=== PATIENT | female | born 1990 | race Caucasian/White ===

== ENCOUNTER 2016-08-15 09:38 | Emergency (ER) | payer SELFPAY ==
[~2016-08-15] VITALS: Ht 162.6 cm; Wt 48.0 kg
[2016-08-15 09:40] VITALS: BP 139/87; PULSE 100; RESP 20; TEMP 98.1; O2SAT 95
[2016-08-15] MEDS ORDERED: predniSONE 20 MG TAB PO ONE (10:15)
[2016-08-15] MEDS ORDERED: RESP: ALBUTEROL 2.5 MG/IPRATROPIUM 0.5 MG NEB (SCH) INH ONE (10:15)
[2016-08-15] MEDS ORDERED: BENZ100 PO (10:16)
[2016-08-15] MEDS ORDERED: ALBUAER3 INH (10:16)
[2016-08-15] MEDS ORDERED: MOME17I EACH NARE (10:16)
[2016-08-15] MEDS ORDERED: PRED-503 PO (10:16)
--- NOTE | 2016-08-15 10:22 | PD ---
HPI Chief Complaint: Cold / Flu Symptoms Time Seen by Provider: 10:07 Travel History International Travel<30 days: No Contact w/Intl Traveler<30days: No Traveled to known affect area: No History of Present Illness HPI 26-year-old female presents to the emergency Department with complaint of cough , nasal congestion, wheezing 3 days. Reports fever of 101.0 yesterday and took Tylenol with good relief. Denies history of asthma. Reports chest tightness and shortness of breath. Cough is constant and unrelieved. Cough is worse at night. Denies history of DVT or PE. Denies hemoptysis, recent travel , trauma, surgery. Has not taken any other medications or tried any other treatments to alleviate symptoms. Reports tobacco use. Denies risk of . Denies contraception use. Allergies to codeine. Denies significant past medical history. No other modifying factors or associated signs and symptoms. PFSH Past Medical History Medical History: Denies Significant Hx Diminished Hearing: No Immunizations Current: Yes Menopausal: No : 2 Para: 2 Miscarriage: 0 : 0 Social History Alcohol Use: No Tobacco Use: Yes (3 CIGS A DAY) Substance Use: No Allergies-Medications (Allergen,Severity, Reaction): Coded Allergies: Codeine (Verified Allergy, Severe, Itching, 08/15/16) *MDRO Multi-Drug Resistant Organism (Unverified Adverse Reaction, Unknown , 08/15/16) 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 Reported Meds & Prescriptions Reported Meds & Active Scripts Active Azithromycin 500 Mg Tab 500 Mg PO DAILY Tessalon Perles (Benzonatate) 100 Mg Cap 100 Mg PO TID PRN Nasonex Nasal [place] (Mometasone Furoate) 50 Mcg/Act Naspr 2 [place] EACH NARE DAILY PRN Proair Hfa 8.5 GM Inh (Albuterol Sulfate) 90 Mcg/Act Aer 2 Puff INH Q4-6H PRN 108 mcg/actuation Deltasone (Prednisone) 20 Mg Tab 40 Mg PO DAILY 4 Days start 08/16/2016 Review of Systems Except as stated in HPI: all other systems reviewed are Neg Physical Exam Narrative GENERAL: Well-nourished, well-developed female patient, in no acute distress; afebrile, nontoxic-appearing SKIN: Warm and dry. HEAD: Atraumatic. Normocephalic. EYES: Pupils equal and round. No scleral icterus. No injection or drainage. ENT: Mucosa pink and moist. No erythema or exudates. No uvular edema. No uvular , palatal, or tonsillar deviation. Airway patent. Nares without nasal blood, purulent drainage or septal hematoma. EARS: Bilateral pinnae and external canals appear within normal limits. Bilateral tympanic membranes without erythema, dullness or perforation. NECK: Trachea midline. No lymphadenopathy. CARDIOVASCULAR: Regular rate and rhythm. No murmur appreciated. RESPIRATORY: No accessory muscle use. Lungs with Wheezing throughout to auscultation. Breath sounds equal bilaterally. No retractions or tachypnea. No Audible wheezing noted. Consistent dry cough. GASTROINTESTINAL: Abdomen soft, non-tender, nondistended. Hepatic and splenic margins not palpable. Bowel sounds are active 4 quadrants. MUSCULOSKELETAL: No obvious deformities. No clubbing. No cyanosis. No edema. NEUROLOGICAL: Awake and alert. Oriented 3. No obvious cranial nerve deficits. Motor grossly within normal limits. Normal speech. Moves all extremities. 5/5 strength to all extremities. PSYCHIATRIC: Appropriate mood and affect; insight and judgment normal. Data Data Last Documented VS Vital Signs Date Time Temp Pulse Resp B/P Pulse Ox O2 Delivery O2 Flow Rate FiO2 08/15/16 11:47 98 16 99 08/15/16 09:40 98.1 139/87 Room Air Orders Chest, Single Ap (08/15/16 10:07) Prednisone (Deltasone) (08/15/16 10:15) Albuterol-Ipratropium Neb (Duoneb Neb) (08/15/16 10:15) Albuterol-Ipratropium Neb (Duoneb Neb) (08/15/16 11:00) [facility] Medical Decision Making Medical Screen Exam Complete: Yes Emergency Medical Condition: Yes Medical Record Reviewed: Yes Differential Diagnosis Acute bronchitis, upper respiratory infection, pneumonia, influenza Narrative Course 26-year-old female physical exam consistent with acute bronchitis. Patient is in no acute distress. Oxygen saturation is 95% on room air. No retractions or tachypnea. Patient afebrile on the ER. Reports a fever of 101.0 yesterday. Denies history of DVT/PE. The patient denies history of PE or DVT; denies recent surgery or trauma, hemoptysis, exogenous estrogen and leg edema. The patient has no present criteria for pulmonary embolism; using the PERC rule for pulmonary embolism there is no need for further workup for PE. Chest x-ray ordered. DuoNeb 1 and prednisone administered and ER. 1053: On reexamination lung sounds are with diffuse wheezing. Patient complaining of chest tightness. DuoNeb 2 ordered. 1106: Chest X-ray concludes Mild hyperinflation with minimal peribronchial thickening. 1150: On reexamination patient reports improvement in symptoms. Lung sounds are clear and equal throughout. Pro Air inhaler, Deltasone, Tessalon Perles, nasonex, azithromycin prescribed for home. Patient is medically cleared and stable for discharge. Discussed reasons to return to the emergency department. Instructed patient to follow up with primary care provider. Patient agrees with treatment plan. The patients vital signs are stable and the patient is stable for outpatient follow-up and treatment. Patient discharged home, stable and in no acute distress. Diagnosis Primary Impression: Acute bronchitis Qualified Code: J20.9 - Acute bronchitis, unspecified organism Referrals: Primary Care Physician Patient Instructions: Acute Bronchitis (ED), General Instructions, Safe Use of Cough and Cold Medicines (ED) Departure Forms: Tests/Procedures, Work Release Enter return to work date: Aug 17, 2016 Additional Instructions: Use albuterol inhaler as needed for shortness of breath/wheezing Take oral steroids as prescribed and complete full course Avoid triggers such as second hand smoke, dust, known allergens Ibuprofen/Tylenol as directed for fever/pain Get plenty of sleep/rest Drink plenty of fluids to prevent dehydration; popsicles and Gatorade Offer crackers, dry cereal, fruit, applesauce, etc. to encourage nutrition Use an air humidifier/turn off ceiling fans Follow-up with primary care provider within 1 to 2 days Return to emergency department immediately with worsening of symptoms Med/Other Pt SpecificInfo: Prescription(s) given Scripts Azithromycin 500 Mg [id number] Mg PO DAILY #5 TAB Ref 0 Prov:Coral Dee ENGLISH PROFESSOR 08/15/16 Benzonatate (Tessalon Perles)100 Mg [id number] Mg PO TID PRN (COUGH) #21 CAP Ref 0 Prov:Coral Dee ENGLISH PROFESSOR 08/15/16 Mometasone Nasal [place] (Nasonex Nasal [place])50 Mcg/Act Naspr2 [place] EACH NARE DAILY PRN (NASAL CONGESTION) #1 BOTTLE Ref 0 Prov:Coral DeeP 08/15/16 Albuterol 8.5 GM Inh (Proair Hfa 8.5 GM Inh)90 Mcg/Act Aer2 Puff INH Q4-6H PRN ( SHORTNESS OF BREATH) #1 INHALER Ref 0 108 mcg/actuation Prov:Coral Dee 08/15/16 Prednisone (Deltasone)20 Mg Tab40 Mg PO DAILY 4 Days Ref 0 start 08/16/2016 Prov:Coral Dee 08/15/16 Disposition: 01 DISCHARGE HOME Condition: Stable Coral Dee Aug 15, 2016 10:22
--- NOTE | 2016-08-15 11:01 | RADRPT ---
EXAM DATE/TIME: 08/15/2016 10:51 [place] COMPARISON: No previous studies available for comparison. INDICATIONS : Short of breath, cough, and wheezing. MEDICAL HISTORY : None. SURGICAL HISTORY : None. ENCOUNTER: Initial ACUITY: 3 days PAIN SCORE: 0/10 LOCATION: Bilateral chest FINDINGS: Mild hyperinflation is present with minimal peribronchial thickening. The heart and pulmonary vascula rity are normal. The portion of the bony skeleton visualized is unremarkable. There is no pneumothorax. CONCLUSION: Mild hyperinflation with minimal peribronchial thickening. Esa Napier MD FACR on August 15, 2016 at 10:59 Board Certified Radiologist. This report was verified electronically.
[2016-08-15] MEDS ORDERED: AZIT500T2 PO (11:09)
[2016-08-15] MEDS: RESP: ALBUTEROL 2.5 MG/IPRATROPIUM 0.5 MG NEB (SCH) INH (11:27)
== END 2016-08-15 11:58 | disposition home or self-care (01) ==
LOC: NEPB 09:38
DX: J20.9 Acute bronchitis, unspecified (principal); F17.210 Nicotine dependence, cigarettes, uncomplicated
CPT/HCPCS: 71010; 94640; 94664; 99284; J7512

== ENCOUNTER 2017-02-11 14:48 | Emergency (ER) | payer OTHER ==
[~2017-02-11] VITALS: Ht 162.6 cm; Wt 47.0 kg
[~2017-02-11 14:48] MED LIST: ALBUAER3 INH; AZIT500T2 PO; BENZ100 PO; MOME17I EACH NARE; PRED-503 PO
[2017-02-11 14:51] VITALS: BP 130/85; PULSE 137; RESP 17; TEMP 98.7; O2SAT 97
[2017-02-11] MEDS ORDERED: SODIUM CHLOR 0.9% 1000 ML INJ 1,000 ML IV ONE ×2 (15:15)
--- NOTE | 2017-02-11 15:27 | PD ---
HPI Chief Complaint: Edema Time Seen by Provider: 15:00 Travel History International Travel<30 days: No Contact w/Intl Traveler<30days: No Traveled to known affect area: No History of Present Illness HPI 26-year-old female with history of IV drug abuse here with complaint of left hand/thumb pain. Patient injects Dilaudid 8 mg 2-3 times daily, as well as cocaine. She typically injects in the antecubitals. For the last day she has noticed swelling and pain over the left thumb extending into the left hand. States that this is slightly red. No fevers or chills. En route to severe, worse with movement. Notably tachycardic in the 130s in triage. PFSH Past Medical History Medical History: Denies Significant Hx Diminished Hearing: No Immunizations Current: Yes ?: Unknown Menopausal: No : 2 Para: 2 Miscarriage: 0 : 0 Past Surgical History Surgical History: No Previous Surgery Social History Alcohol Use: No Tobacco Use: Yes (1/2 ppd) Substance Use: Yes (IV DILAUDID, COCAINE DAILY) Allergies-Medications (Allergen,Severity, Reaction): Coded Allergies: Codeine (Verified Allergy, Severe, Itching, 02/11/17) *MDRO Multi-Drug Resistant Organism (Unverified Adverse Reaction, Unknown , 02/11/17) 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 Reported Meds & Prescriptions Reported Meds & Active Scripts Active No Active Prescriptions or Reported Medications Review of Systems Except as stated in HPI: all other systems reviewed are Neg Physical Exam Narrative GENERAL: Cachectic female in no acute distress SKIN: Track white in the bilateral antecubital. HEAD: Normocephalic. EYES: No scleral icterus. No injection or drainage. ENT: Mucous membranes pink and moist. NECK: Supple CARDIOVASCULAR: Tachycardic with heart rate in the 130s, regular rhythm No murmur appreciated. RESPIRATORY: No accessory muscle use. GASTROINTESTINAL: Abdomen soft, non-tender, nondistended. MUSCULOSKELETAL: Mild erythema, mild swelling over the left thumb extending into the MCP, and dorsal hand. Pain with range of motion. There is no significant induration, no fluctuance. There is no streaking erythema. On the right dorsal hand/wrist she does have a urticarial type reaction with raised hive appearance. NEUROLOGICAL: Awake and alert. Motor grossly within normal limits. Normal speech. PSYCHIATRIC: Appropriate mood and affect; insight and judgment normal. Data Data Last Documented VS Vital Signs Date Time Temp Pulse Resp B/P Pulse Ox O2 Delivery O2 Flow Rate FiO2 02/11/17 14:51 98.7 137 17 130/85 97 Orders Complete Blood Count With Diff (02/11/17 15:07) Comprehensive Metabolic Panel (02/11/17 15:07) Lactic Acid Sepsis Protocol (02/11/17 15:07) Blood Culture (02/11/17 15:07) Ecg Monitoring (02/11/17 15:07) Iv Access Insert/Monitor (02/11/17 15:07) Oximetry (02/11/17 15:07) Sodium Chlor 0.9% 1000 Ml Inj (Ns 1000 M (02/11/17 15:15) Sodium Chlor 0.9% 1000 Ml Inj (Ns 1000 M (02/11/17 15:15) MDM Medical Decision Making Medical Screen Exam Complete: Yes Emergency Medical Condition: Yes Medical Record Reviewed: Yes Differential Diagnosis 26-year-old female with history of Dilaudid and cocaine IV drug abuse still using here with complaint of thumb/hand pain on the left times one day. Notably tachycardic in triage. Differential includes cellulitis, abscess, septic joint/arthritis, bacteremia, endocarditis Narrative Course Patient placed on monitor. Her exam is actually fairly benign with only minimal swelling and erythema. However, given her tachycardia I recommended labs including lactate and blood cultures to evaluate for signs of sepsis. Patient stated "my 70-year-old fibryce is in the car, it is down pouring and I need to get some belongings from him. I don't want him to come in, I don't want him to get sick". Patient wanted to leave to go out to the vehicle prior to IV access. We waited for approximately 35 minutes and unfortunately patient did not return and was signed out AGAINST MEDICAL ADVICE. Diagnosis Primary Impression: Left against medical advice Additional Impression: IV drug abuse Scripts No Active Prescriptions or Reported Meds Disposition: 07 AGAINST MEDICAL ADVICE Condition: Stable Araceli Garcia MD Feb 11, 2017 15:27
== END 2017-02-11 16:09 | disposition left against medical advice (07) ==
LOC: NEPD 14:48
DX: F19.10 Other psychoactive substance abuse, uncomplicated (principal)
CPT/HCPCS: 99281

== ENCOUNTER 2017-04-10 13:32 | Emergency (ER) | payer OTHER ==
[2017-04-10 13:36] VITALS: BP 136/90; PULSE 132; RESP 20; TEMP 98.6; O2SAT 99
[2017-04-10] MEDS ORDERED: CLINDAMYCIN INJ 600 MG in SODIUM CHLORIDE 0.9% INJ 100 ML IV ONE (14:15)
[2017-04-10] MEDS ORDERED: SODIUM CHLORIDE 0.9% FLUSH 10 ML FLUSH IVF PRN (14:15)
[2017-04-10] MEDS ORDERED: anxiety med (14:15)
[2017-04-10 14:20] VITALS: BP 129/84; PULSE 129; RESP 18; O2SAT 95
--- NOTE | 2017-04-10 14:26 | PD ---
HPI Chief Complaint: Skin Problem Time Seen by Provider: 14:26 Travel History International Travel<30 days: No Contact w/Intl Traveler<30days: No Traveled to known affect area: No History of Present Illness HPI 26 yr old w/ ADHD, PTSD, anxiety, severe depression, and hx of IV drug use presents with to the ED with L antecubital fossa infection. Accompanied by trell. Reports that swelling and redness started 4-5 days ago on left antecubital fossa after using IV cocaine. Unable to extend left elbow. Also complains that she has been having a lot of anxiety. States that she takes xanax 1 mg on regular basis. She is currently no on any physiatric meds because she has unable to refill them and doesn't have a PCP. States that she is interested in going to [facility]. Endorses mild CP and SOB, but denies fevers, N/V, and abdominal pain. History Past Medical History Menopausal: No : 2 Para: 2 Past Surgical History Surgical History: No Previous Surgery Social History Alcohol Use: No Tobacco Use: Yes (1/2 ppd) Allergies-Medications (Allergen,Severity, Reaction): Coded Allergies: codeine (Unverified Allergy, Severe, Itching, 04/10/17) *MDRO Multi-Drug Resistant Organism (Unverified Adverse Reaction, Unknown , 04/10/17) 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 Reported Meds & Prescriptions Reported Meds & Active Scripts Active Clindamycin (Clindamycin HCl) 300 Mg Cap 300 Mg PO TID Reported [anxiety med] Physical Exam Narrative GENERAL: anxious lady, appears older than her stated age SKIN: 2cm x 4 cm swollen, erythematous, warm indurated area in L antecubital fossa, no drainage seen HEAD: Normocephalic. EYES: No scleral icterus. No injection or drainage. NECK: Supple, trachea midline. No JVD or lymphadenopathy. CARDIOVASCULAR: Regular rate and rhythm without murmurs, gallops, or rubs. RESPIRATORY: Breath sounds equal bilaterally. No accessory muscle use. GASTROINTESTINAL: Abdomen soft, non-tender, nondistended. EXTREMITIES: No cyanosis. NEUROLOGICAL: Awake, alert, and oriented x 3. Non-focal. Data Data Last Documented VS Vital Signs Date Time Temp Pulse Resp B/P (MAP) Pulse Ox O2 Delivery O2 Flow Rate FiO2 04/10/17 16:02 04/10/17 14:20 129 18 95 Room Air 04/10/17 13:36 98.6 Orders Orders Basic Metabolic Panel (Bmp) (04/10/17 14:09) Complete Blood Count With Diff (04/10/17 14:09) Wound Culture And Gram Stain (04/10/17 14:09) Iv Access Insert/Monitor (04/10/17 14:09) Sodium Chloride 0.9% Flush (Ns Flush) (04/10/17 14:15) Clindamycin Inj (Cleocin Inj) (04/10/17 14:15) Lorazepam Inj (Ativan Inj) (04/10/17 14:45) Lidocai-Epi 2%-1:100,000 Inj (Xylocaine- (04/10/17 14:45) Acetamin-Hydrocod 325-5 Mg ([place] 5-325 (04/10/17 15:45) Labs Laboratory Tests Test 04/10/17 14:22 White Blood Count 15.2 TH/MM3 Red Blood Count 4.94 MIL/MM3 Hemoglobin 15.4 GM/DL Hematocrit 44.6 % Mean Corpuscular Volume 90.1 FL Mean Corpuscular Hemoglobin 31.1 PG Mean Corpuscular Hemoglobin Concent 34.5 % Red Cell Distribution Width 13.7 % Platelet Count 345 TH/MM3 Mean Platelet Volume 7.4 FL Neutrophils (%) (Auto) 71.1 % Lymphocytes (%) (Auto) 22.6 % Monocytes (%) (Auto) 4.6 % Eosinophils (%) (Auto) 1.3 % Basophils (%) (Auto) 0.4 % Neutrophils # (Auto) 10.8 TH/MM3 Lymphocytes # (Auto) 3.4 TH/MM3 Monocytes # (Auto) 0.7 TH/MM3 Eosinophils # (Auto) 0.2 TH/MM3 Basophils # (Auto) 0.1 TH/MM3 CBC Comment DIFF FINAL Differential Comment Blood Urea Nitrogen 11 MG/DL Creatinine 0.93 MG/DL Random Glucose 76 MG/DL Calcium Level 8.9 MG/DL Sodium Level 135 MEQ/L Potassium Level 3.5 MEQ/L Chloride Level 100 MEQ/L Carbon Dioxide Level 29.0 MEQ/L Anion Gap 6 MEQ/L Estimat Glomerular Filtration Rate 73 ML/MIN MDM Medical Decision Making Medical Screen Exam Complete: Yes Emergency Medical Condition: No Differential Diagnosis cellulitis vs skin abscess Narrative Course Attempted incision and drainage of infection site in left antecubital fossa by Grace Ybarra. There was no obvious fluid collection. Patient receive a dose of IV clindamycin. Patient found to have leukocytosis on CBC and offered admission, but she declined. She was discharge with oral antibiotics. Scripts Clindamycin (Clindamycin) 300 Mg Cap 300 MG PO TID for Infection, #21 CAP 0 Refills Prov: Araceli Tyson MD 04/10/17 Анна Hadley MD R1 Apr 10, 2017 14:26
[2017-04-10] MEDS ORDERED: LORazepam 2 MG/ML VIAL IV PUSH ONE (14:45)
[2017-04-10] MEDS ORDERED: LIDOCAINE 2%/EPINEPHrine 1:100,000 50ML MDV NERV BLOCK ONE (14:45)
[2017-04-10 14:48] LABS: AUTOMATED NEUTROPHIL # 10.8 TH/MM3 (1.8-7.7); BASOPHIL # 0.1 TH/MM3 (0-0.2); BASOPHIL % 0.4 % (0.0-2.0); EOSINOPHIL # 0.2 TH/MM3 (0-0.4); EOSINOPHIL % 1.3 % (0.0-4.0); HEMATOCRIT 44.6 % (35.0-46.0); HEMO FLAGS DIFF FINAL; LYMPH % 22.6 % (9.0-44.0); LYMPHOCYTE # 3.4 TH/MM3 (1.0-4.8); MEAN CELL VOLUME 90.1 FL (80.0-100.0); MEAN CORPUSCULAR HEMOGLOBIN 31.1 PG (27.0-34.0); MEAN CORPUSCULAR HGB CONC 34.5 % (32.0-36.0); MONO % 4.6 % (0.0-8.0); NEUT % 71.1 % (16.0-70.0); PLATELET COUNT 345 TH/MM3 (150-450); RED BLOOD COUNT 4.94 MIL/MM3 (4.00-5.30); RED CELL DISTRIBUTION WIDTH 13.7 % (11.6-17.2); WHITE BLOOD COUNT 15.2 TH/MM3 (4.0-11.0)
[2017-04-10 15:02] LABS: POTASSIUM 3.5 MEQ/L (3.5-5.1)
[2017-04-10] MEDS ORDERED: CLIN1CAP6 PO (15:29)
--- NOTE | 2017-04-10 15:29 | PD ---
Data Data Last Documented VS Vital Signs Date Time Temp Pulse Resp B/P (MAP) Pulse Ox O2 Delivery O2 Flow Rate FiO2 04/10/17 14:20 129 18 129/84 (99) 95 Room Air 04/10/17 13:36 98.6 Orders Orders Basic Metabolic Panel (Bmp) (04/10/17 14:09) Complete Blood Count With Diff (04/10/17 14:09) Wound Culture And Gram Stain (04/10/17 14:09) Iv Access Insert/Monitor (04/10/17 14:09) Sodium Chloride 0.9% Flush (Ns Flush) (04/10/17 14:15) Clindamycin Inj (Cleocin Inj) (04/10/17 14:15) Lorazepam Inj (Ativan Inj) (04/10/17 14:45) Lidocai-Epi 2%-1:100,000 Inj (Xylocaine- (04/10/17 14:45) Labs Laboratory Tests Test 04/10/17 14:22 White Blood Count 15.2 TH/MM3 Red Blood Count 4.94 MIL/MM3 Hemoglobin 15.4 GM/DL Hematocrit 44.6 % Mean Corpuscular Volume 90.1 FL Mean Corpuscular Hemoglobin 31.1 PG Mean Corpuscular Hemoglobin Concent 34.5 % Red Cell Distribution Width 13.7 % Platelet Count 345 TH/MM3 Mean Platelet Volume 7.4 FL Neutrophils (%) (Auto) 71.1 % Lymphocytes (%) (Auto) 22.6 % Monocytes (%) (Auto) 4.6 % Eosinophils (%) (Auto) 1.3 % Basophils (%) (Auto) 0.4 % Neutrophils # (Auto) 10.8 TH/MM3 Lymphocytes # (Auto) 3.4 TH/MM3 Monocytes # (Auto) 0.7 TH/MM3 Eosinophils # (Auto) 0.2 TH/MM3 Basophils # (Auto) 0.1 TH/MM3 CBC Comment DIFF FINAL Differential Comment Blood Urea Nitrogen 11 MG/DL Creatinine 0.93 MG/DL Random Glucose 76 MG/DL Calcium Level 8.9 MG/DL Sodium Level 135 MEQ/L Potassium Level 3.5 MEQ/L Chloride Level 100 MEQ/L Carbon Dioxide Level 29.0 MEQ/L Anion Gap 6 MEQ/L Estimat Glomerular Filtration Rate 73 ML/MIN [facility] Supervised Visit with LIBRADO: No Narrative Course The history, exam, and medical decision-making in the associated Resident provider note were completed with my assistance. I reviewed and agree with the findings presented. I attest that I had a [id number] encounter with the patient on the same day, and personally performed and documented my assessment and findings in the medical record. *My assessment and Findings: This is a 26-year-old female who presents to the emergency department who is an IV drug user who has an early abscess and cellulitis of the left antecubital fossa. It was evaluated under ultrasound by Hiren Ybarra and an incision and drainage was attempted. It appears that the area is indurated but there is no obvious fluid collection. She is given a dose of IV clindamycin. She does have a leukocytosis. She was offered admission but she declined. She would prefer to do a course of oral antibiotic therapy. I think she has decision-making capacity. She'll be discharged on antibiotics. Gen.: Disheveled Psych: Anxious and intermittently tearful Skin: 3 cm area of induration along the medial aspect of the left antecubital fossa with surrounding erythema and warmth Vascular: 2+ left radial pulse with normal capillary refill in the left forearm Diagnosis Primary Impression: Cellulitis Qualified Codes: L03.114 - Cellulitis of left upper limb Patient Instructions: General Instructions Additional Instruction: If you develop fever, increasing redness, warmth, or spreading of your infection , or severe pain return to the emergency department immediately as you may require antibiotics through your IV. Complete your course of antibiotics as prescribed. Med/Other Pt SpecificInfo: Prescription(s) given Scripts Clindamycin (Clindamycin) 300 Mg Cap 300 MG PO TID for Infection, #21 CAP 0 Refills Prov: Araceli Tyson MD 04/10/17 Disposition: DISCHARGE HOME Condition: Stable Araceli Tyson MD Apr 10, 2017 15:29
[2017-04-10] MEDS ORDERED: ACETAMINOPHEN/HYDROcodone 325 MG/5 MG TAB PO ONE (15:45)
== END 2017-04-10 16:12 | disposition home or self-care (01) ==
LOC: NEPE 13:32
DX: L03.114 Cellulitis of left upper limb (principal); D72.829 Elevated white blood cell count, unspecified; F41.9 Anxiety disorder, unspecified; R07.9 Chest pain, unspecified; R06.02 Shortness of breath; F17.200 Nicotine dependence, unspecified, uncomplicated
CPT/HCPCS: 10060; 80048; 85025; 96365; 96375; 99284; J2060

== ENCOUNTER 2017-04-11 13:44 | Emergency (ER) | payer OTHER ==
[~2017-04-11] VITALS: Ht 162.6 cm; Wt 48.0 kg
[~2017-04-11 13:44] MED LIST changes: -ALBUAER3 INH; -AZIT500T2 PO; -BENZ100 PO; +CLIN1CAP6 PO; -MOME17I EACH NARE; -PRED-503 PO; +anxiety med
[2017-04-11 13:47] VITALS: BP 122/82; PULSE 105; RESP 16; TEMP 98; O2SAT 100
--- NOTE | 2017-04-11 13:53 | PD ---
HPI . left arm cellulitis Chief Complaint: Skin Problem Time Seen by Provider: 13:52 Travel History International Travel<30 days: No Contact w/Intl Traveler<30days: No Traveled to known affect area: No History of Present Illness HPI 26 yr old female IV drug user here for recheck one her left arm abscess. Patient was seen yesterday and I&D was attempted without success. She is here for recheck. She says she thinks the arm is more swollen and that she really needs pain meds because she stopped cocaine and that she needs something for her pain. She says the pain was so severe that she vomited 3 times. She denies any fever or chills. PFSH Past Medical History Anxiety: Yes Diminished Hearing: No Immunizations Current: Yes ?: Not Menopausal: No : 2 Para: 2 Miscarriage: 0 : 0 Social History Alcohol Use: No Tobacco Use: Yes (/ ppd) Substance Use: Yes (IV DILAUDID, COCAINE DAILY) Allergies-Medications (Allergen,Severity, Reaction): Coded Allergies: codeine (Unverified Allergy, Severe, Itching, 04/10/17) *MDRO Multi-Drug Resistant Organism (Unverified Adverse Reaction, Unknown , 04/10/17) 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 Reported Meds & Prescriptions Reported Meds & Active Scripts Active Clindamycin (Clindamycin HCl) 300 Mg Cap 300 Mg PO TID Reported [anxiety med] Review of Systems General / Constitutional: No: Fever Eyes: No: Visual changes HENT: No: Headaches Cardiovascular: No: Chest Pain or Discomfort Respiratory: No: Shortness of Breath Gastrointestinal: No: Abdominal Pain Genitourinary: No: Dysuria Musculoskeletal: Positive: Pain (left arm) Skin: Positive Other (left arm cellulitis), No Rash Neurologic: No: Weakness Psychiatric: No: Depression Endocrine: No: Polydipsia Hematologic/Lymphatic: No: Easy Bruising Physical Exam Narrative GENERAL: AAO x 3, no acute distress, Well-nourished, well-developed patient. comfortable and in no distress SKIN: Warm and dry. No visible rashes or bruising. left antecubital fossa with erythema mild edema and warm to touch. Incision is a visible and draining blood without any evidence of purulence HEAD: Normocephalic and atraumatic. EYES: No scleral icterus. No injection or drainage. ENT: No nasal drainage noted. Mucous membranes pink. Airway patent. NECK: Supple, trachea midline. No JVD. CARDIOVASCULAR: Tachycardic without any rubs, murmurs or gallops. RESPIRATORY: Breath sounds equal bilaterally. No accessory muscle use. No rhonchi or rales. GASTROINTESTINAL: Abdomen soft, non-tender, nondistended. EXTREMITIES: No cyanosis. Limited range of motion of the left arm at the level of the elbow due to reports of pain BACK: No obvious deformity. No CVA tenderness. NEURO: CN II-12 intact, commercial collections driver strength normal b/l, UE and LE 5/5, no focal deficits PSYCH: AAO x 3, normal affect. Data Data Last Documented VS Vital Signs Date Time Temp Pulse Resp B/P (MAP) Pulse Ox O2 Delivery O2 Flow Rate FiO2 04/11/17 13:47 98.0 105 16 122/82 (95) 100 Orders Orders Complete Blood Count With Diff (04/11/17 13:59) Lactic Acid Sepsis Protocol (04/11/17 13:59) Urinalysis - C+S If Indicated (04/11/17 13:59) Blood Culture (04/11/17 13:59) Chest, Single Ap (04/11/17 13:59) Blood Glucose (04/11/17 13:59) Ecg Monitoring (04/11/17 13:59) Iv Access Insert/Monitor (04/11/17 13:59) Oximetry (04/11/17 13:59) Oxygen Administration (04/11/17 13:59) Ed Urine Pregnancytest Poc (04/11/17 13:59) Sodium Chlor 0.9% 1000 Ml Inj (Ns 1000 M (04/11/17 14:15) Labs Laboratory Tests Test 04/11/17 14:20 [facility] Medical Decision Making Medical Screen Exam Complete: Yes Emergency Medical Condition: Yes Medical Record Reviewed: Yes Differential Diagnosis arm cellulitis, IV drug abuse, Narrative Course 26 yr old female here with c/o left arm cellulitis. I have ordered additional labs and sepsis workup as patient is at risk due to her IV drug use. Patient requesting pain meds and did not want what I offered. She decided to leave against AMA and told our nurse she wanted to go elsewhere to get better pain meds. The patient appeared comfortable. She was not in any signs of distress. She also wanted to leave the hospital to smoke. Diagnosis Primary Impression: Left against medical advice Disposition: 07 AGAINST MEDICAL ADVICE Condition: Stable Mary Dean Apr 11, 2017 13:53
[2017-04-11] MEDS ORDERED: SODIUM CHLOR 0.9% 1000 ML INJ 1,000 ML IV ONE (14:15)
--- NOTE | 2017-04-11 14:36 | RADRPT ---
EXAM DATE/TIME: 04/11/2017 14:23 [facility] COMPARISON: CHEST SINGLE AP, August 15, 2016, 10:51. INDICATIONS : Cough. Patient complains of left arm pain and swelling, abcess. Patient had vomiting and diarrhea. MEDICAL HISTORY : None. SURGICAL HISTORY : None. ENCOUNTER: Initial ACUITY: 4 - 6 days PAIN SCORE: 0/10 LOCATION: Bilateral chest FINDINGS: A single view of the chest demonstrates the lungs to be symmetrically aerated without evidence of mas s, infiltrate or effusion. The cardiomediastinal contours are unremarkable. Osseous structures are intact. CONCLUSION: 1. No acute cardiopulmonary findings. Wilton Napier MD on April 11, 2017 at 14:34 Board Certified Radiologist. This report was verified electronically.
[2017-04-11 14:54] LABS: HEMATOCRIT 43.4 % (35.0-46.0); MEAN CELL VOLUME 91.1 FL (80.0-100.0); MEAN CORPUSCULAR HGB CONC 34.1 % (32.0-36.0); PLATELET COUNT 341 TH/MM3 (150-450); RED BLOOD COUNT 4.77 MIL/MM3 (4.00-5.30); RED CELL DISTRIBUTION WIDTH 13.8 % (11.6-17.2); WHITE BLOOD COUNT 11.3 TH/MM3 (4.0-11.0)
[2017-04-11 15:01] LABS: HEMO FLAGS AUTO DIFF
[2017-04-11 15:50] LABS: EOSINOPHILS 2 % (0-4); POLYS (SEG NEUTROPHILS) 71 % (16-70); WBC DIFF SAMPLE 100
[2017-04-11 15:51] LABS: SCAN/DIFF FINAL DIFF MANUAL
== END 2017-04-11 14:58 | disposition left against medical advice (07) ==
LOC: NEPD 13:44
DX: L03.114 Cellulitis of left upper limb (principal); F41.9 Anxiety disorder, unspecified; F17.200 Nicotine dependence, unspecified, uncomplicated; Z88.5 Allergy status to narcotic agent
CPT/HCPCS: 71010; 83605; 85007; 85027; 87040; 99284

== ENCOUNTER 2017-08-01 11:36 | Inpatient (IN) | payer OTHER ==
[~2017-08-01] VITALS: Ht 162.6 cm; Wt 50.0 kg
[~2017-08-01 11:36] MED LIST changes: -CLIN1CAP6 PO; +CLIN300C5 PO
[2017-08-01 11:39] VITALS: BP 133/96; PULSE 148; RESP 20; TEMP 101.4; O2SAT 99
[2017-08-01] MEDS ORDERED: IBUPROFEN 800 MG TAB PO ONE (11:45)
[2017-08-01 13:09] VITALS: BP 119/76; PULSE 148; RESP 13; TEMP 101.2; O2SAT 100
--- NOTE | 2017-08-01 13:19 | PD ---
HPI Chief Complaint: Musculoskeletal Complaint Time Seen by Provider: 12:59 Travel History International Travel<30 days: No Contact w/Intl Traveler<30days: No Traveled to known affect area: No History of Present Illness HPI 27 y/o female presents with mid and low back pain over the past couple of days. She is developed a fever. She states she last used IV drugs a couple months ago. She states she's had abscesses in her extremities but denies prior spinal abscess. She denies any other concurrent complaints at this time. Quality pain is sharp. Severity is severe per patient. Pain is worse with movement. She denies other modifying factors. PFSH Past Medical History Anxiety: Yes Diminished Hearing: No Immunizations Current: Yes Tetanus Vaccination: Unknown ?: Not Menopausal: No : 2 Para: 2 Miscarriage: 0 : 0 Past Surgical History Surgical History: No Previous Surgery Social History Alcohol Use: No (Occasionally) Tobacco Use: Yes (1/2 ppd) Substance Use: No Allergies-Medications (Allergen,Severity, Reaction): Coded Allergies: codeine (Unverified Allergy, Severe, Itching, 04/10/17) *MDRO Multi-Drug Resistant Organism (Unverified Adverse Reaction, Unknown , 04/10/17) 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 Reported Meds & Prescriptions Reported Meds & Active Scripts Active Reported [anxiety med] Review of Systems Except as stated in HPI: all other systems reviewed are Neg Physical Exam Narrative GENERAL: Well-nourished, well-developed patient. SKIN: Warm and dry. HEAD: Normocephalic and atraumatic. EYES: No injection or drainage. ENT: No nasal drainage noted. NECK: Supple, trachea midline. CARDIOVASCULAR: Regular rate and rhythm RESPIRATORY: Breath sounds equal bilaterally. No accessory muscle use. GASTROINTESTINAL: Abdomen soft, non-tender, nondistended. EXTREMITIES: No edema. BACK: Tender to lower thoracic and entire lumbar spine without obvious deformity. No CVA tenderness NEUROLOGICAL: Awake and alert. Motor and sensory grossly within normal limits. Normal speech. Data Data Last Documented VS Vital Signs Date Time Temp Pulse Resp B/P (MAP) Pulse Ox O2 Delivery O2 Flow Rate FiO2 08/01/17 13:48 17 08/01/17 13:09 101.2 148 119/76 (90) 100 Room Air Orders Orders Sepsis Workup Initiated (08/01/17 ) Complete Blood Count With Diff (08/01/17 11:45) Comprehensive Metabolic Panel (08/01/17 11:45) Prothrombin Time / Inr (Pt) (08/01/17 11:45) Act Partial Throm Time (Ptt) (08/01/17 11:45) Lactic Acid Sepsis Protocol (08/01/17 11:45) Urinalysis - C+S If Indicated (08/01/17 11:45) Ibuprofen (Motrin) (08/01/17 11:45) Blood Culture (08/01/17 13:00) Chest, Single Ap (08/01/17 13:00) Ecg Monitoring (08/01/17 13:00) Iv Access Insert/Monitor (08/01/17 13:00) Oximetry (08/01/17 13:00) Mri C Spine W&W/O Contrast (08/01/17 ) Mri T Spine W & W/O Contrast (08/01/17 ) Mri L Spine W&W/O Contrast (08/01/17 ) Ed Urine Pregnancytest Poc (08/01/17 13:00) Sodium Chlor 0.9% 1000 Ml Inj (Ns 1000 M (08/01/17 13:30) Acetaminophen (Tylenol) (08/01/17 13:45) Sodium Chlor 0.9% 1000 Ml Inj (Ns 1000 M (08/01/17 15:45) Gadodiamide Pf Inj (Omniscan Pf Inj) (08/01/17 15:50) Vancomycin Inj (Vancomycin Inj) (08/01/17 17:09) Piperacil-Tazo 4.5 Gm Premix (Zosyn 4.5 (08/01/17 17:09) Sodium Chlor 0.9% 1000 Ml Inj (Ns 1000 M (08/01/17 17:15) Admit Order (Ed Use Only) (08/01/17 17:13) Labs Laboratory Tests Test 08/01/17 12:30 08/01/17 13:10 08/01/17 14:26 08/01/17 16:43 Blood Urea Nitrogen 13 MG/DL Creatinine 0.97 MG/DL Random Glucose 110 MG/DL Total Protein 8.7 GM/DL Albumin 4.0 GM/DL Calcium Level 9.7 MG/DL Alkaline Phosphatase 183 U/L Aspartate Amino Transf (AST/SGOT) 118 U/L Alanine Aminotransferase (ALT/SGPT) 82 U/L Total Bilirubin 1.2 MG/DL Sodium Level 137 MEQ/L Potassium Level 5.2 MEQ/L Chloride Level 103 MEQ/L Carbon Dioxide Level 26.0 MEQ/L Anion Gap 8 MEQ/L Estimat Glomerular Filtration Rate 69 ML/MIN Lactic Acid Level 3.1 mmol/L 1.5 mmol/L Urine Color YELLOW Urine Turbidity CLEAR Urine pH 5.5 Urine Specific [place] 1.010 Urine Protein NEG mg/dL Urine Glucose (UA) NEG mg/dL Urine Ketones NEG mg/dL Urine Occult Blood NEG Urine Nitrite NEG Urine Bilirubin NEG Urine Urobilinogen LESS THAN 2.0 MG/DL Urine Leukocyte Esterase TRACE Urine RBC 1 /hpf Urine WBC 2 /hpf Urine Mucus FEW /lpf Microscopic Urinalysis Comment CATH-CULT NOT IND White Blood Count 11.0 TH/MM3 Red Blood Count 4.27 MIL/MM3 Hemoglobin 13.5 GM/DL Hematocrit 38.9 % Mean Corpuscular Volume 91.1 FL Mean Corpuscular Hemoglobin 31.7 PG Mean Corpuscular Hemoglobin Concent 34.8 % Red Cell Distribution Width 13.8 % Platelet Count 189 TH/MM3 Mean Platelet Volume 7.4 FL Neutrophils (%) (Auto) 95.3 % Lymphocytes (%) (Auto) 3.9 % Monocytes (%) (Auto) 0.4 % Eosinophils (%) (Auto) 0.3 % Basophils (%) (Auto) 0.1 % Neutrophils # (Auto) 10.5 TH/MM3 Lymphocytes # (Auto) 0.4 TH/MM3 Monocytes # (Auto) 0.0 TH/MM3 Eosinophils # (Auto) 0.0 TH/MM3 Basophils # (Auto) 0.0 TH/MM3 CBC Comment DIFF FINAL Differential Comment Prothrombin Time 11.7 SEC Prothromb Time International Ratio 1.2 RATIO Activated Partial Thromboplast Time 26.8 SEC [facility] Medical Decision Making Medical Screen Exam Complete: Yes Emergency Medical Condition: Yes Medical Record Reviewed: Yes (past history confirmed) Interpretation(s) CBC & BMP Diagram 08/01/17 12:30 Total Protein 8.7 H, Albumin 4.0, Calcium Level 9.7, Alkaline Phosphatase 183 H , Aspartate Amino Transf (AST/SGOT) 118 H, Alanine Aminotransferase (ALT/SGPT) 82 H, Total Bilirubin 1.2 H 08/01/17 14:26 Last 24 hours Impressions Chest X-Ray 08/01/17 1300 Signed Impressions: Service Date/Time: Tuesday, August 01, 2017 13:22 - CONCLUSION: No acute disease. There is no evidence of pneumonia. Delfino Hawk MD Lumbar Spine MRI 08/01/17 0000 Signed Impressions: Service Date/Time: Tuesday, August 01, 2017 15:24 - CONCLUSION: Disc degeneration and tiny protrusion at L5-S1. No other acute findings. No evidence of abscess as questioned. Michael Solorio MD Differential Diagnosis Discitis, spinal abscess, UTI, pneumonia, URI Narrative Course Will add on MRI entire spine and discuss with neurosurgery given history of IV drug abuse MRI shows no signs of infection. Patient will now be given antibiotics and she' ll be admitted to the hospital for sepsis workup including possible endocarditis given IV drug history use, patient updated and agrees to plan Sepsis Criteria SIRS Criteria (2 or more): Temp > 100.9 or < 96.8, Heart rate over 90 Sepsis Criteria (SIRS+source): Infect source susp/known Severe Sepsis (+one): Lactate >2 Criteria Outcome: Meets severe sepsis criteria Physician Communication Physician Communication dr murguia states to wait on antibiotics when case discussed at 1324 dr baron agrees to admit Diagnosis Primary Impression: Sepsis Qualified Codes: A41.9 - Sepsis, unspecified organism Additional Impression: IV drug abuse Admitting Information Admitting Physician Requests: Admit Suzi Ibarra MD Aug 01, 2017 13:19
[2017-08-01 13:20] LABS: ALKALINE PHOSPHATASE 183 U/L (45-117); LACTIC ACID SEPSIS PROTOCOL 3.1 mmol/L (0.4-2.0); TOTAL BILIRUBIN ADULT 1.2 MG/DL (0.2-1.0); TOTAL PROTEIN 8.7 GM/DL (6.4-8.2)
[2017-08-01 13:21] LABS: ALT (GPT) 82 U/L (10-53); AST (GOT) 118 U/L (15-37); BLOOD UREA NITROGEN 13 MG/DL (7-18); CALCIUM 9.7 MG/DL (8.5-10.1); CHLORIDE 103 MEQ/L (98-107); CREATININE 0.97 MG/DL (0.50-1.00); GLOMERULAR FILTRATION RATE 69 ML/MIN (>89); GLUCOSE,RANDOM 110 MG/DL (74-106); SODIUM (NA) 137 MEQ/L (136-145)
[2017-08-01] MEDS ORDERED: SODIUM CHLOR 0.9% 1000 ML INJ 1,000 ML IV ONE ×3 (13:30→17:15)
--- NOTE | 2017-08-01 13:43 | RADRPT ---
EXAM DATE/TIME: 08/01/2017 13:22 [facility] COMPARISON: CHEST SINGLE AP, April 11, 2017, 14:23. INDICATIONS : Fever, short of breath, cough, chest pain MEDICAL HISTORY : None. SURGICAL HISTORY : None. ENCOUNTER: Initial ACUITY: 1 day PAIN SCORE: 5/10 LOCATION: Bilateral chest FINDINGS: A single view of the chest demonstrates the lungs to be symmetrically aerated without evidence of mas s, infiltrate or effusion. The cardiomediastinal contours are unremarkable. Osseous structures are intact. There are multiple overlying electrocardiogram leads. CONCLUSION: No acute disease. There is no evidence of pneumonia. Delfino Hawk MD on August 01, 2017 at 13:39 Board Certified Radiologist. This report was verified electronically.
[2017-08-01] MEDS ORDERED: ACETAMINOPHEN 325 MG TAB PO ONE (13:45)
[2017-08-01 14:08] LABS: BILIRUBIN, URINE NEG (NEG); BLOOD, URINE NEG (NEG); GLUCOSE,URINE NEG (NEG); KETONE, URINE NEG (NEG); MUCUS URINE FEW /lpf (OCC); NITRITE,URINE NEG (NEG); PH, URINE 5.5 (5.0-8.5); URINE COLOR YELLOW (YELLW/STRAW); URINE LEUKOCYTE ESTERASE TRACE (NEG)
[2017-08-01 15:22] LABS: AUTOMATED NEUTROPHIL # 10.5 TH/MM3 (1.8-7.7); BASOPHIL % 0.1 % (0.0-2.0); EOSINOPHIL % 0.3 % (0.0-4.0); HEMATOCRIT 38.9 % (35.0-46.0); HEMOGLOBIN 13.5 GM/DL (11.6-15.3); LYMPH % 3.9 % (9.0-44.0); LYMPHOCYTE # 0.4 TH/MM3 (1.0-4.8); MEAN CELL VOLUME 91.1 FL (80.0-100.0); MEAN CORPUSCULAR HEMOGLOBIN 31.7 PG (27.0-34.0); MEAN CORPUSCULAR HGB CONC 34.8 % (32.0-36.0); MEAN PLATELET VOLUME 7.4 FL (7.0-11.0); MONO % 0.4 % (0.0-8.0); NEUT % 95.3 % (16.0-70.0); PLATELET COUNT 189 TH/MM3 (150-450); RED BLOOD COUNT 4.27 MIL/MM3 (4.00-5.30); RED CELL DISTRIBUTION WIDTH 13.8 % (11.6-17.2)
[2017-08-01 15:34] LABS: INTERNATIONAL NORMALIZED RATIO 1.2 RATIO; PROTHROMBIN TIME - PATIENT 11.7 SEC (9.8-11.6)
[2017-08-01] MEDS ORDERED: GADODIAMIDE PF 287 MG/ML 10 ML VIAL (for RAD MRI) IV PUSH ONE (15:50)
--- NOTE | 2017-08-01 16:29 | RADRPT ---
EXAM DATE/TIME: 08/01/2017 15:24 [facility] COMPARISON: No previous studies available for comparison. INDICATIONS : Abscess. CONTRAST: 10 cc Omniscan (gadodiamide) IV MEDICAL HISTORY : Hepatitis C. SURGICAL HISTORY : None. ENCOUNTER: Initial ACUITY: 2 day PAIN SCORE: 4/10 LOCATION: spine TECHNIQUE: Multiplanar multisequence MRI of the lumbar spine was performed with and without contrast. FINDINGS: The most caudal appearing lumbar vertebra is numbered as L5. VERTEBRAE: Homogeneous signal. Normal alignment. CONUS: Normal level and configuration. POST CONTRAST: No abnormal areas of contrast enhancement are seen. T12-L1: The thecal sac has a normal diameter. No evidence of disc bulge or protrusion. The neural foramina are patent bilaterally. L1-L2: The thecal sac has a normal diameter. No evidence of disc bulge or protrusion. The neural foramina are patent bilaterally. L2-L3: The thecal sac has a normal diameter. No evidence of disc bulge or protrusion. The neural foramina are patent bilaterally. L3-L4: The thecal sac has a normal diameter. No evidence of disc bulge or protrusion. The neural foramina are patent bilaterally. L4-L5: The thecal sac has a normal diameter. No evidence of disc bulge or protrusion. The neural foramina are patent bilaterally. L5-S1: Moderate disc dehydration. Small broad central to minimally right paracentral dorsal disc protrusion minimally indenting thecal sac. Canal and foramina are satisfactory. CONCLUSION: Disc degeneration and tiny protrusion at L5-S1. No other acute findings. No evidence of abscess as qu estioned. Michael Solorio MD on August 01, 2017 at 16:25 Board Certified Radiologist. This report was verified electronically.
--- NOTE | 2017-08-01 16:41 | RADRPT ---
EXAM DATE/TIME: 08/01/2017 15:24 [facility] COMPARISON: No previous studies available for comparison. INDICATIONS : Back pain. Evaluate for possible abscess.. CONTRAST: 10 cc Omniscan (gadodiamide) IV MEDICAL HISTORY : Hepatitis C. SURGICAL HISTORY : None. ENCOUNTER: Initial ACUITY: 2 day PAIN SCORE: 4/10 LOCATION: spine TECHNIQUE: Multiplanar multisequence MRI of the thoracic spine was performed. FINDINGS: VERTEBRA: Normal vertebral body height. Homogeneous marrow signal. ALIGNMENT: Normal. CORD: Normal position and configuration. POST CONTRAST: No abnormal areas of contrast enhancement seen. T1-T2: Normal. T2-T3: The thecal sac has a normal diameter. No evidence of disc bulge or protrusion. T3-T4: The thecal sac has a normal diameter. No evidence of disc bulge or protrusion. T4-T5: The thecal sac has a normal diameter. No evidence of disc bulge or protrusion. T5-T6: The thecal sac has a normal diameter. No evidence of disc bulge or protrusion. T6-T7: The thecal sac has a normal diameter. No evidence of disc bulge or protrusion. T7-T8: The thecal sac has a normal diameter. No evidence of disc bulge or protrusion. T8-T9: The thecal sac has a normal diameter. No evidence of disc bulge or protrusion. T9-T10: The thecal sac has a normal diameter. No evidence of disc bulge or protrusion. T10-T11: The thecal sac has a normal diameter. No evidence of disc bulge or protrusion. T11-T12: The thecal sac has a normal diameter. No evidence of disc bulge or protrusion. T12-L1: The thecal sac has a normal diameter. No evidence of disc bulge or protrusion. CONCLUSION: Negative exam with no evidence of abscess. Delfino Hawk MD on August 01, 2017 at 16:36 Board Certified Radiologist. This report was verified electronically.
--- NOTE | 2017-08-01 16:56 | RADRPT ---
EXAM DATE/TIME: 08/01/2017 15:24 [facility] COMPARISON: No previous studies available for comparison. INDICATIONS : Neck and back pain. Evaluate for abscess. CONTRAST: 10 cc Omniscan (gadodiamide) IV MEDICAL HISTORY : Hepatitis C. SURGICAL HISTORY : None. ENCOUNTER: Initial ACUITY: 2 day PAIN SCORE: 4/10 LOCATION: Spine. TECHNIQUE: Multiplanar, multisequence MRI examination of the cervical spine was performed. FINDINGS: VERTEBRAE: Normal vertebral body height. Homogeneous marrow signal. ALIGNMENT: No evidence of subluxation. CORD: Normal configuration and signal. POST FOSSA: The cerebellar tonsils are normal in position. POST-CONTRAST: No abnormal areas of enhancement are seen. C2-C3: The thecal sac has a normal configuration. There is no evidence of disc herniation or spinal canal stenosis. The neural foramina are patent bilaterally. C3-C4: The thecal sac has a normal configuration. There is no evidence of disc herniation or spinal canal s tenosis. The neural foramina are patent bilaterally. C4-C5: The thecal sac has a normal configuration. There is no evidence of disc herniation or spinal canal s tenosis. The neural foramina are patent bilaterally. C5-C6: The thecal sac has a normal configuration. There is no evidence of disc herniation or spinal canal s tenosis. The neural foramina are patent bilaterally. C6-C7: The thecal sac has a normal configuration. There is no evidence of disc herniation or spinal canal s tenosis. The neural foramina are patent bilaterally. C7-T1: The thecal sac has a normal configuration. There is no evidence of disc herniation or spinal canal s tenosis. The neural foramina are patent bilaterally. CONCLUSION: Negative exam with no evidence of abscess. Delfino Hawk MD on August 01, 2017 at 16:49 Board Certified Radiologist. This report was verified electronically.
[2017-08-01] MEDS ORDERED: VANCOMYCIN INJ 1,000 MG in SODIUM CHLOR 0.9% 250 ML INJ 250 ML IV STA (17:09)
[2017-08-01] MEDS ORDERED: PIPERACIL-TAZO 4.5 GM PREMIX 100 ML IV STA (17:09)
[2017-08-01] MEDS ORDERED: ACETAMINOPHEN 325 MG TAB PO PRN (17:30)
[2017-08-01] MEDS ORDERED: MAGNESIUM HYDROXIDE SUSP 30 ML CUP PO PRN (17:30)
[2017-08-01] MEDS ORDERED: LACTULOSE SYRUP 20 GM/30 ML CUP PO PRN (17:30)
[2017-08-01] MEDS ORDERED: SODIUM CHLORIDE 0.9% FLUSH 10 ML FLUSH IV FLUSH PRN (17:30)
[2017-08-01] MEDS ORDERED: Vancomycin Consult Pharmacy 1 EA OTHER SCH (17:30)
[2017-08-01] MEDS ORDERED: NALOXONE HCL 0.4 MG/ML AMP IV PUSH PRN (17:30)
[2017-08-01] MEDS ORDERED: SENNOSIDES 8.6 MG TAB PO PRN (17:30)
[2017-08-01] MEDS ORDERED: BISACODYL 10 MG SUPP RECTAL PRN (17:30)
[2017-08-01] MEDS ORDERED: ENOXAPARIN SODIUM 40 MG/0.4 ML SYRINGE SQ SCH ×2 (17:30→21:30)
[2017-08-01] MEDS ORDERED: ONDANSETRON HCL 4 MG/2 ML VIAL IVP PRN (17:30)
[2017-08-01] MEDS: PIPERACIL-TAZO 3.375 GM PREMIX 50 ML IV SCH ×2 (17:52→18:22)
[2017-08-01 17:53] VITALS: BP 102/62; PULSE 98; RESP 17; TEMP 98.9; O2SAT 100
[2017-08-01] MEDS: traMADol HCL 50 MG TAB PO PRN (18:15)
[2017-08-01 21:14] VITALS: BP 95/62; PULSE 67; RESP 20; TEMP 98.5; O2SAT 97
[2017-08-01] MEDS: SODIUM CHLORIDE 0.9% FLUSH 10 ML FLUSH IV FLUSH SCH (21:39)
--- NOTE | 2017-08-01 22:00 | HHI.HP ---
[facility] No Primary Care Physician Admission Diagnosis sepsis, IVDA Diagnoses: Chief Complaint: Fever, mid and low back pain. Travel History International Travel<30 Days: No Contact w/Intl Traveler <30 Da: No Traveled to Known Affected Are: No Sepsis Criteria SIRS Criteria (2 or more): Temp > 100.9 or < 96.8, Heart rate over 90 Sepsis Criteria (SIRS+source): Infect source susp/known Severe Sepsis (+one): Lactate >2 Criteria Outcome: Meets SIRS criteria, Meets sepsis criteria, Meets severe sepsis criteria History of Present Illness Ms. Conti is a pleasant 27 year old female with a history of IVDU who presents to the ED on 08/01/2017 with mid and low back pain that started 2-3 days prior to this admission. Her pain was so severe that she could not breathe properly. She also reports subjective fever, chills and nausea, vomiting. She denies any chest pain, cough, abdominal pain. No changes in bowel or bladder habits. She reports using IV drugs for almost 7 years and quit about 2 months ago. Review of Systems Except as stated in HPI: all other systems reviewed are Neg Past Family Social History Past Medical History IV Drug use Skin abscess Past Surgical History No major surgeries in the past. Reported Medications Does not take any medications on a regular basis. Allergies: Coded Allergies: codeine (Unverified Allergy, Severe, Itching, 04/10/17) *MDRO Multi-Drug Resistant Organism (Unverified Adverse Reaction, Unknown , 04/10/17) 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 Family History No family history of heart disease, cancer. Social History Smokes about 5 cig a day and drinks 3 times a week. Physical Exam Vital Signs Vital Signs Date Time Temp Pulse Resp B/P (MAP) Pulse Ox O2 Delivery O2 Flow Rate FiO2 08/01/17 21:14 98.5 67 20 95/62 (73) 97 08/01/17 17:53 98.9 98 17 102/62 (75) 100 Room Air 08/01/17 13:48 17 08/01/17 13:09 101.2 148 13 119/76 (90) 100 Room Air 08/01/17 11:39 101.4 148 20 133/96 (108) 99 Physical Exam GENERAL: This is a well-nourished, well-developed patient, in no apparent distress. SKIN: No rashes, ecchymoses or lesions. Warm and dry. HEAD: Atraumatic. Normocephalic. No temporal or scalp tenderness. EYES: Pupils equal round and reactive. No injection or drainage. ENT: Nose without bleeding, purulent drainage or septal hematoma. Airway patent. NECK: Trachea midline. No lymphadenopathy. Supple, nontender, no meningeal signs. CARDIOVASCULAR: Regular rate and rhythm without murmurs, gallops, or rubs. No JVD. RESPIRATORY: Clear to auscultation. Breath sounds equal bilaterally. No wheezes , rales, or rhonchi. GASTROINTESTINAL: Abdomen soft, non-tender, nondistended. No guarding. MUSCULOSKELETAL: Extremities without clubbing, cyanosis, or edema. NEUROLOGICAL: Awake and alert. Cranial nerves II through XII intact. No focal neurological deficits. Normal speech. Laboratory Laboratory Tests Test 08/01/17 12:30 08/01/17 13:10 08/01/17 14:26 08/01/17 16:43 Blood Urea Nitrogen 13 Creatinine 0.97 Random Glucose 110 Total Protein 8.7 Albumin 4.0 Calcium Level 9.7 Alkaline Phosphatase 183 Aspartate Amino Transf (AST/SGOT) 118 Alanine Aminotransferase (ALT/SGPT) 82 Total Bilirubin 1.2 Sodium Level 137 Potassium Level 5.2 Chloride Level 103 Carbon Dioxide Level 26.0 Anion Gap 8 Estimat Glomerular Filtration Rate 69 Lactic Acid Level 3.1 1.5 Urine Color YELLOW Urine Turbidity CLEAR Urine pH 5.5 Urine Specific [place] 1.010 Urine Protein NEG Urine Glucose (UA) NEG Urine Ketones NEG Urine Occult Blood NEG Urine Nitrite NEG Urine Bilirubin NEG Urine Urobilinogen LESS THAN 2.0 Urine Leukocyte Esterase TRACE Urine RBC 1 Urine WBC 2 Urine Mucus FEW Microscopic Urinalysis Comment CATH-CULT NOT IND White Blood Count 11.0 Red Blood Count 4.27 Hemoglobin 13.5 Hematocrit 38.9 Mean Corpuscular Volume 91.1 Mean Corpuscular Hemoglobin 31.7 Mean Corpuscular Hemoglobin Concent 34.8 Red Cell Distribution Width 13.8 Platelet Count 189 Mean Platelet Volume 7.4 Neutrophils (%) (Auto) 95.3 Lymphocytes (%) (Auto) 3.9 Monocytes (%) (Auto) 0.4 Eosinophils (%) (Auto) 0.3 Basophils (%) (Auto) 0.1 Neutrophils # (Auto) 10.5 Lymphocytes # (Auto) 0.4 Monocytes # (Auto) 0.0 Eosinophils # (Auto) 0.0 Basophils # (Auto) 0.0 CBC Comment DIFF FINAL Differential Comment Prothrombin Time 11.7 Prothromb Time International Ratio 1.2 Activated Partial Thromboplast Time 26.8 Date/Time Source Procedure Growth Status 08/01/17 13:20 Blood Peripheral Aerobic Blood Culture Pending Received 08/01/17 13:20 Blood Peripheral Anaerobic Blood Culture Pending Received Result Diagram: 08/01/17 1426 08/01/17 1230 Imaging Last Impressions Chest X-Ray 08/01/17 1300 Signed Impressions: Service Date/Time: Tuesday, August 01, 2017 13:22 - CONCLUSION: No acute disease. There is no evidence of pneumonia. Delfino Hawk MD Thoracic Spine MRI 08/01/17 0000 Signed Impressions: Service Date/Time: Tuesday, August 01, 2017 15:24 - CONCLUSION: Negative exam with no evidence of abscess. Delfino Hawk MD Lumbar Spine MRI 08/01/17 0000 Signed Impressions: Service Date/Time: Tuesday, August 01, 2017 15:24 - CONCLUSION: Disc degeneration and tiny protrusion at L5-S1. No other acute findings. No evidence of abscess as questioned. Michael Solorio MD Cervical Spine MRI 08/01/17 0000 Signed Impressions: Service Date/Time: Tuesday, August 01, 2017 15:24 - CONCLUSION: Negative exam with no evidence of abscess. Delfino Hawk MD Caprini VTE Risk Assessment Caprini VTE Risk Assessment: Mod/High Risk (score >= 2) Caprini Risk Assessment Model Point Value = 1 Point Value = 2 Point Value = 3 Point Value = 5 Age 41-60 Minor surgery BMI > 25 kg/m2 Swollen legs Varicose veins or History of unexplained or recurrent spontaneous Oral contraceptives or hormone replacement Sepsis (< 1 month) Serious lung disease, including pneumonia (< 1 month) Abnormal pulmonary function Acute myocardial infarction Congestive heart failure (< 1 month) History of inflammatory bowel disease Medical patient at bed rest Age 61-74 Arthroscopic surgery Major open surgery (> 45 min) Laparoscopic surgery (> 45 min) Malignancy Confined to bed (> 72 hours) Immobilizing plaster cast Central venous access Age >= 75 History of VTE Family history of VTE Factor V Leiden Prothrombin [id number] Lupus anticoagulant Anticardiolipin antibodies Elevated serum homocysteine Heparin-induced thrombocytopenia Other congenital or acquired thrombophilia Stroke (< 1 month) Elective arthroplasty Hip, pelvis, or leg fracture Acute spinal cord injury (< 1 month) Prophylaxis Regimen Total Risk Factor Score Risk Level Prophylaxis Regimen 0-1 Low Early ambulation 2 Moderate Order ONE of the following: *Sequential Compression Device (SCD) *Heparin 5000 units SQ BID 3-4 Higher Order ONE of the following medications: *Heparin 5000 units SQ TID *Enoxaparin/Lovenox 40 mg SQ daily (WT < 150 kg, CrCl > 30 mL/min) *Enoxaparin/Lovenox 30 mg SQ daily (WT < 150 kg, CrCl > 10-29 mL/min) *Enoxaparin/Lovenox 30 mg SQ BID (WT < 150 kg, CrCl > 30 mL/min) AND/OR *Sequential Compression Device (SCD) 5 or more Highest Order ONE of the following medications: *Heparin 5000 units SQ TID (Preferred with Epidurals) *Enoxaparin/Lovenox 40 mg SQ daily (WT < 150 kg, CrCl > 30 mL/min) *Enoxaparin/Lovenox 30 mg SQ daily (WT < 150 kg, CrCl > 10-29 mL/min) *Enoxaparin/Lovenox 30 mg SQ BID (WT < 150 kg, CrCl > 30 mL/min) AND *Sequential Compression Device (SCD) Assessment and Plan Problem List: (1) Severe sepsis ICD Code: A41.9 - Sepsis, unspecified organism; R65.20 - Severe sepsis without septic shock (2) IV drug abuse ICD Code: F19.10 - Other psychoactive substance abuse, uncomplicated Status: Acute Assessment and Plan Ms. Conti is a pleasant 27 year old female with a history of IVDU, last use 2 months prior to this admission who presents to the ED on 08/01/2017 due to fever, mid and low back pain. MRI spine was negative for abscess. - Severe sepsis (Tachycardia, fever, Lactic acid 3.1, suspected infection - epidural abscess and/or bacteremia, infective endocarditis). - Possible infective endocarditis - MRI spine imaging studies indicate no abscess, images reviewed by me. CXR reviewed by me, unremarkable study. - Blood cultures pending. - Will continue empiric abx coverage with Vancomycin and Zosyn IV. - If blood cultures are positive, we will obtain 2D echo and possibly LAUREN. - Low back pain - etiology is not clear. - Acetaminophen and Tramadol for pain. - IVDU - last use two months prior to this admission. - Tobacco abuse - Alcohol abuse - Counselled patient regarding her IVDU, alcohol and tobacco abuse. Full code. Loveyahirx. Physician Certification 2 Midnight Certification Type: Admission for Inpatient Services Order for Inpatient Services The services are ordered in accordance with Medicare regulations or non- Medicare payer requirements, as applicable. In the case of services not specified as inpatient-only, they are appropriately provided as inpatient services in accordance with the 2-midnight benchmark. Estimated LOS (days): 3 days is the estimated time the patient will need to remain in the hospital, assuming treatment plan goals are met and no additional complications. Post-Hospital Plan: Home Janes Mcclellan DO Aug 01, 2017 22:00
[2017-08-02 00:14] VITALS: BP 92/59; PULSE 80; RESP 20; TEMP 98.1; O2SAT 98
[2017-08-02] MEDS: PIPERACIL-TAZO 3.375 GM PREMIX 50 ML IV SCH ×2 (00:38→06:17)
[2017-08-02] MEDS: traMADol HCL 50 MG TAB PO PRN ×2 (02:58→07:04)
[2017-08-02 03:53] VITALS: BP 107/71; PULSE 75; RESP 20; TEMP 98.4; O2SAT 99
[2017-08-02 04:05] LABS: AUTOMATED NEUTROPHIL # 22.3 TH/MM3 (1.8-7.7); BASOPHIL # 0.1 TH/MM3 (0-0.2); BASOPHIL % 0.3 % (0.0-2.0); EOSINOPHIL # 0.1 TH/MM3 (0-0.4); EOSINOPHIL % 0.4 % (0.0-4.0); HEMOGLOBIN 12.6 GM/DL (11.6-15.3); LYMPH % 9.8 % (9.0-44.0); LYMPHOCYTE # 2.5 TH/MM3 (1.0-4.8); MEAN CELL VOLUME 91.8 FL (80.0-100.0); MEAN CORPUSCULAR HEMOGLOBIN 31.3 PG (27.0-34.0); MEAN CORPUSCULAR HGB CONC 34.1 % (32.0-36.0); MEAN PLATELET VOLUME 7.7 FL (7.0-11.0); MONO % 3.3 % (0.0-8.0); MONOCYTE # 0.9 TH/MM3 (0-0.9); NEUT % 86.2 % (16.0-70.0); PLATELET COUNT 186 TH/MM3 (150-450); RED BLOOD COUNT 4.03 MIL/MM3 (4.00-5.30); RED CELL DISTRIBUTION WIDTH 14.3 % (11.6-17.2); WHITE BLOOD COUNT 25.9 TH/MM3 (4.0-11.0)
[2017-08-02 04:47] LABS: CALCIUM 7.4 MG/DL (8.5-10.1); CREATININE 0.99 MG/DL (0.50-1.00)
[2017-08-02 05:02] LABS: CALCIUM-PROTEIN CORRECTED 8.1 MG/DL (8.5-10.1); TOTAL PROTEIN 5.9 GM/DL (6.4-8.2)
[2017-08-02 07:10] LABS: BANDS 17 % (0-6); LYMPHOCYTES 14 % (9-44); MONOCYTES 4 % (0-8); POLYS (SEG NEUTROPHILS) 64 % (16-70)
--- NOTE | 2017-08-02 08:41 | HHI.PR ---
Subjective Remarks Follow up sepsis, back pain. The patient is reporting 10/10 back pain "all over " despite Tramadol. She also reports nausea, vomiting, dyspnea, chest pain. Objective Vitals Vital Signs Date Time Temp Pulse Resp B/P (MAP) Pulse Ox O2 Delivery O2 Flow Rate FiO2 08/02/17 03:53 98.4 75 20 107/71 (83) 99 08/02/17 00:14 98.1 80 20 92/59 (70) 98 08/01/17 21:14 98.5 67 20 95/62 (73) 97 08/01/17 17:53 98.9 98 17 102/62 (75) 100 Room Air 08/01/17 13:48 17 08/01/17 13:09 101.2 148 13 119/76 (90) 100 Room Air 08/01/17 11:39 101.4 148 20 133/96 (108) 99 I/O 08/01/17 08/01/17 08/01/17 08/02/17 08/02/17 08/02/17 07:00 15:00 23:00 07:00 15:00 23:00 Intake Total 3400 ml 400 ml Balance 3400 ml 400 ml Intake Oral 400 ml IV Total 3400 ml # Voids 3 Result Diagram: 08/02/17 0323 08/02/17 0323 Imaging Last Impressions Chest X-Ray 08/01/17 1300 Signed Impressions: Service Date/Time: Tuesday, August 01, 2017 13:22 - CONCLUSION: No acute disease. There is no evidence of pneumonia. Delfino Hawk MD Thoracic Spine MRI 08/01/17 0000 Signed Impressions: Service Date/Time: Tuesday, August 01, 2017 15:24 - CONCLUSION: Negative exam with no evidence of abscess. Delfino Hawk MD Lumbar Spine MRI 08/01/17 0000 Signed Impressions: Service Date/Time: Tuesday, August 01, 2017 15:24 - CONCLUSION: Disc degeneration and tiny protrusion at L5-S1. No other acute findings. No evidence of abscess as questioned. Michael Solorio MD Cervical Spine MRI 08/01/17 0000 Signed Impressions: Service Date/Time: Tuesday, August 01, 2017 15:24 - CONCLUSION: Negative exam with no evidence of abscess. Delfino Hawk MD Objective Remarks Examined in the presence of the nurse. General: No acute distress. Resting comfortably in bed. Heart: Tachycardic. No murmur. Lungs: Clear to auscultation bilaterally. No wheezes, rales, or rhonchi. Breathing is nonlabored. Abdomen: Soft, nontender, nondistended. Extremities: No lower extremity edema. Psych: Alert and oriented. Procedures None Urinary Catheter: No Vascular Central Line Catheter: No A/P Problem List: (1) Severe sepsis ICD Code: A41.9 - Sepsis, unspecified organism; R65.20 - Severe sepsis without septic shock (2) IV drug abuse ICD Code: F19.10 - Other psychoactive substance abuse, uncomplicated Status: Acute Assessment and Plan 1. Severe sepsis: Patient presented with tachycardia, fever, elevated serum lactic acid. Presumed source of infection is bacteremia, possible endocarditis. Blood cultures are pending. Continue IV antibiotics. If blood cultures are positive, will obtain 2D echo and/or LAUREN. WBCs are elevated. 2. Back pain: Uncertain etiology. MRI shows no evidence of abscess. 3. IV drug abuse: Patient reports last used IV drugs 2 months ago. She has been counselled. 4. Tobacco abuse: Counselled. 5. Alcohol abuse: Counselled. 6. DVT prophylaxis: Lovenox. Fazal Aburto MD Aug 02, 2017 08:41
[2017-08-02] MEDS ORDERED: IBUPROFEN 600 MG TAB PO PRN (08:45)
[2017-08-02] MEDS: SODIUM CHLORIDE 0.9% FLUSH 10 ML FLUSH IV FLUSH SCH (10:29)
[2017-08-02] MEDS ORDERED: VANCOMYCIN 1,000 MG/NS 250 ML IV SCH ×2 (12:00)
[2017-08-04] MEDS ORDERED: PHARMACY ORDERED LAB ONE (17:45)
== END 2017-08-02 13:05 | disposition left against medical advice (07) | DRG 872 ==
LOC: NEPC 11:36 → NEDA 17:14 → NEDH 21:05
PROVIDERS: ADMIT Family Medicine; ATTEND Family Medicine
DX: A41.9 Sepsis, unspecified organism (principal); F10.10 Alcohol abuse, uncomplicated; R65.20 Severe sepsis without septic shock; M54.5 Low back pain; F17.210 Nicotine dependence, cigarettes, uncomplicated; F19.10 Other psychoactive substance abuse, uncomplicated; Z86.14 Personal history of Methicillin resistant Staphylococcus aureus infection; Z88.5 Allergy status to narcotic agent
CPT/HCPCS: 71045; 72156; 72157; 72158; 80048; 80053; 81001; 83605; 84155; 84703; 85007; 85025; 85027; 85610; 85730; 87040; 96360; 96361; A9579; J1650; J2543; J3370; J7030; J7050

== ENCOUNTER 2017-08-02 13:42 | Emergency (ER) | payer OTHER ==
[~2017-08-02] VITALS: Ht 162.6 cm; Wt 47.5 kg
[2017-08-02 13:43] VITALS: BP 123/77; PULSE 114; RESP 20; TEMP 98.6; O2SAT 97
--- NOTE | 2017-08-02 20:06 | PD ---
HPI Chief Complaint: Abnormal Results Time Seen by Provider: 14:11 Travel History International Travel<30 days: No Contact w/Intl Traveler<30days: No Traveled to known affect area: No History of Present Illness HPI Pt is a 27-year-old female presenting to the emergency department to be readmitted. She states she has a blood infection and left AMA to go home to pack a bad one hour ago. She reports is back to finish her treatment. She does report back pain with an 8 out of 10. She has no other complaints at this time. PFSH Past Medical History Blood Disorders: No Anxiety: Yes Cancer: No Cardiovascular Problems: No Diminished Hearing: No Endocrine: No Genitourinary: No Immune Disorder: No Musculoskeletal: No Neurologic: Yes (PTSD) Psychiatric: Yes (PTSD) Reproductive: No Respiratory: No Immunizations Current: Yes Menopausal: No : 2 Para: 2 Miscarriage: 0 : 0 Social History Alcohol Use: No (Occasionally) Tobacco Use: Yes (1/2 ppd) Substance Use: No Allergies-Medications (Allergen,Severity, Reaction): Coded Allergies: codeine (Unverified Allergy, Severe, Itching, 04/10/17) *MDRO Multi-Drug Resistant Organism (Unverified Adverse Reaction, Unknown , 04/10/17) 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 Reported Meds & Prescriptions Reported Meds & Active Scripts Active No Active Prescriptions or Reported Medications Review of Systems Except as stated in HPI: all other systems reviewed are Neg Musculoskeletal: Positive: Pain Physical Exam Narrative GENERAL: Well-developed, well-nourished, alert female. Appearing in no acute distress. SKIN: Warm and dry. HEAD: Normocephalic. EYES: No scleral icterus. No injection or drainage. CARDIOVASCULAR: Tachycardic RESPIRATORY: No accessory muscle use. Data Data Last Documented VS Vital Signs Date Time Temp Pulse Resp B/P (MAP) Pulse Ox O2 Delivery O2 Flow Rate FiO2 08/02/17 17:03 08/02/17 13:43 98.6 114 20 97 Room Air MDM Medical Decision Making Medical Screen Exam Complete: Yes Emergency Medical Condition: Yes Interpretation(s) Vital Signs Date Time Temp Pulse Resp B/P (MAP) Pulse Ox O2 Delivery O2 Flow Rate FiO2 08/02/17 17:03 08/02/17 13:43 98.6 114 20 123/77 (92) 97 Room Air Differential Diagnosis Sepsis versus noncompliance versus IV drug use versus other Narrative Course Patient is a 27-year-old female presenting to the emergency department to be readmitted. She was admitted yesterday, she is mildly tachycardic on arrival otherwise well-appearing. She is waiting for bed placement. Patient Carlie Conti has decided to leave the hospital against medical advice again. This patient has the capacity to refuse care and understands the risks of leaving, including permanent disability and/or , and has had an opportunity to ask questions about her condition. The patient has been informed that she may return for care at any time, and follow up has been arranged/advised. Diagnosis Primary Impression: Left against medical advice Scripts No Active Prescriptions or Reported Meds Disposition: 07 AGAINST MEDICAL ADVICE Jacqueline Quesada Aug 02, 2017 20:06
== END 2017-08-02 18:46 | disposition left against medical advice (07) ==
LOC: NED 13:42
DX: F43.10 Post-traumatic stress disorder, unspecified (principal); R00.0 Tachycardia, unspecified; F17.210 Nicotine dependence, cigarettes, uncomplicated; Z53.21 Procedure and treatment not carried out due to patient leaving prior to being seen by health care provider
CPT/HCPCS: 99281